=== PATIENT | male | born 1985 | race Hispanic/Latino ===

== ENCOUNTER 2019-08-23 14:09 | Emergency (ER) | payer BC, OTHER | END 2019-08-23 14:31 | disposition home or self-care (01) | LOC: EDH 14:09 | DX: J02.9 Acute pharyngitis, unspecified (principal); R50.9 Fever, unspecified; R51 Headache; Z90.49 Acquired absence of other specified parts of digestive tract; Z72.0 Tobacco use | CPT/HCPCS: 99281 ==